=== PATIENT | female | born 1980 | race Caucasian/White ===

== ENCOUNTER 2018-06-14 14:49 | Emergency (ER) | payer MEDICAID ==
[~2018-06-14] VITALS: Ht 154.9 cm; Wt 89.4 kg
[2018-06-14 15:03] VITALS: Ht 154.9 cm; Wt 89.4 kg
[2018-06-14 15:42] VITALS: BP 146/78
== END 2018-06-14 15:42 | disposition home or self-care (01) ==
LOC: ED 14:49
DX: S61.211D Laceration without foreign body of left index finger without damage to nail, subsequent encounter (principal); X58.XXXD Exposure to other specified factors, subsequent encounter

== ENCOUNTER 2019-04-26 05:15 | Emergency (ER) | payer MEDICAID ==
[~2019-04-26] VITALS: Ht 152.4 cm; Wt 82.7 kg
[2019-04-26 05:24] VITALS: Ht 152.4 cm; Wt 82.7 kg
[2019-04-26 06:59] LABS: BASOPHIL % 0.1 % (0-2); PLATELET COUNT 242 x10^3mcL (130-400); RED CELL DISTRIBUTION WIDTH 14.3 % (11.5-14.5)
[2019-04-26 07:03] LABS: CALCIUM 8.8 mg/dL (8.5-10.1); CARBON DIOXIDE 26.4 mmol/L (21-32); CHLORIDE SERUM 104 mmol/L (98-107); CREATININE SERUM 0.7 mg/dL (0.6-1.0); GFR1 > 60 mL/min; GLUCOSE SERUM 115 mg/dL (74-106); POTASSIUM SERUM 4.3 mmol/L (3.5-5.1); SODIUM SERUM 139 mmol/L (136-145)
[2019-04-26 07:07] LABS: ALKALINE PHOSPHATASE 58 U/L (46-116); ALT/SGPT 16 U/L (14-59); AMYLASE 52 U/L (25-115); AST/SGOT 10 U/L (15-37); BILIRUBIN TOTAL 0.37 mg/dL (0.20-1.00); LIPASE 127 IU/L (73-393); TOTAL PROTEIN, SERUM 7.8 g/dL (6.4-8.2)
[2019-04-26 07:08] LABS: ALBUMIN 3.3 g/dL (3.4-5.0)
[2019-04-26 08:04] VITALS: BP 113/66
== END 2019-04-26 08:04 | disposition home or self-care (01) ==
LOC: ED 05:15
PROVIDERS: Emergency Medicine
DX: R10.84 Generalized abdominal pain (principal)
CPT/HCPCS: 36415; J1885